=== PATIENT | female | born 1995 | race African-American/Black ===

== ENCOUNTER 2022-08-06 17:04 | Emergency (ER) | payer MEDICAID ==
[~2022-08-06] VITALS: Ht 177.8 cm; Wt 113.0 kg
[2022-08-06 17:27] VITALS: BP 144/78
[2022-08-06 18:09] LABS: CLARITY URINE CLEAR (CLEAR); COLOR URINE YELLOW (YELLOW); KETONES URINE NEGATIVE (NEGATIVE); LEUKOCYTE ESTERASE URINE NEGATIVE (NEGATIVE); NITRITE URINE NEGATIVE (NEGATIVE); OCCULT BLOOD URINE TRACE (NEGATIVE); PROTEIN URINE NEGATIVE (NEGATIVE); SPECIFIC GRAVITY URINE 1.006 (1.005-1.030); UROBILINOGEN URINE 0.2 E.U./dL (0.2-1.0)
[2022-08-06 18:32] LABS: BASOPHILS % 0.6 % (0.0-2.0); EOSINOPHILS % 2.6 % (0.0-5.0); HEMATOCRIT. 31.4 % (36.0-48.0); HEMOGLOBIN. 10.5 g/dL (12.0-16.0); LYMPHOCYTES % 29.2 % (20.0-50.0); MEAN CORPUSCULAR VOLUME 86.6 fL (81.0-99.0); MEAN PLATELET VOLUME 8.6 fl (7.4-10.4); MONOCYTES % 4.9 % (2.0-8.0); NEUTROPHILS % 62.7 % (40.0-76.0); PLATELET 313 x1000/uL (130-400); RED BLOOD CELL COUNT 3.62 mill/uL (4.2-5.4); RED CELL DISTRIBUTION WIDTH 13.7 % (11.6-14.6)
[2022-08-06 18:35] LABS: CHLORIDE 108 mEq/L (98-107)
[2022-08-06 18:38] LABS: HCG SCREEN POSITIVE
[2022-08-06 18:45] LABS: B-HCG QUANTITATIVE 455 mIU/mL (<3)
== END 2022-08-07 00:41 | disposition home or self-care (01) ==
LOC: ER 17:04
DX: N93.9 Abnormal uterine and vaginal bleeding, unspecified (principal); Z33.2 Encounter for elective termination of pregnancy
CPT/HCPCS: 36415; 76830; 76856; 80053; 81003; 84702; 84703; 85025; 86850; 86900; 99284